=== PATIENT | male | born 1945 | race Two or more races ===

== ENCOUNTER 2020-12-26 22:00 | Emergency (ER) | payer OTHER ==
[~2020-12-26] VITALS: Ht 182.9 cm; Wt 79.4 kg
[2020-12-27] MEDS ORDERED: traMADol HCL 50 MG TAB PO ONE (06:15)
== END 2020-12-27 06:55 | disposition home or self-care (01) ==
LOC: EDBD 22:00 → ER 22:14
DX: T78.49XA Other allergy, initial encounter (principal); X58.XXXA Exposure to other specified factors, initial encounter
CPT/HCPCS: 93005

== ENCOUNTER 2021-04-19 08:13 | Emergency (ER) | payer OTHER ==
[~2021-04-19] VITALS: Ht 172.7 cm; Wt 79.4 kg
[2021-04-19] MEDS ORDERED: AMIODARONE HCL 150 MG in D5W 5% 100 ML IV ONE (09:00)
[2021-04-19] MEDS ORDERED: SODIUM CHLORIDE 0.9% 1,000 ML IVB ONE (09:00)
[2021-04-19] MEDS ORDERED: SODIUM CHLORIDE 0.9% 1,000 ML IV ONE (09:00)
[2021-04-19] MEDS ORDERED: ASPirin 81 mg TAB PO ONE (09:00)
[2021-04-19 10:46] LABS: Basophils # (auto) 0 10 ^3/uL (0-0.2); Basophils % (auto) 0.3 % (0.0-2.0); Eosinophils # (auto) 0.1 10 ^3/uL (0-0.8); Eosinophils % (auto) 0.9 % (0.0-7.0); Hematocrit 44.6 % (41.0-53.0); Hemoglobin 14.7 g/dL (13.5-17.5); Lymphocytes # (auto) 1.2 10 ^3/uL (0.4-5.4); Lymphocytes % (auto) 14.6 % (10.0-50.0); Mean Corpuscular Hemoglobin 29.8 pg (28.0-32.0); Mean Corpuscular Volume 90.3 fL (80.0-100.0); Monocytes # (auto) 0.8 10 ^3/uL (0-1.3); Monocytes % (auto) 10.3 % (0.0-12.0); Neutrophils % (auto) 73.9 % (37.0-80.0); Red Blood Cells 4.94 10^6/uL (4.5-5.90); Red Cell Distribution Width 14.4 % (11.8-14.3)
[2021-04-19 11:00] LABS: Albumin 3.5 g/dL (3.4-5.0); Anion Gap 3 (5-15); Blood Urea Nitrogen 13 mg/dL (7-18); Calcium 8.5 mg/dL (8.5-10.1); Carbon Dioxide 27 mmol/L (21-32); Chloride 109 mmol/L (98-107); Glucose 121 mg/dL (74-106); Magnesium 2.4 mg/dL (1.6-2.6); Potassium 3.8 mmol/L (3.5-5.1); Sodium 139 mmol/L (136-145)
[2021-04-19 11:06] LABS: INR 1.03 (0.9-1.15); Partial Thromboplastin Time 28.1 sec (23.6-33.0)
[2021-04-19 11:07] LABS: Alanine Aminotransferase 23 U/L (16-61); Alkaline Phosphatase 51 U/L (45-117); Aspartate Aminotransferase 17 U/L (15-37); BUN/Creatinine Ratio 12.6; Bilirubin, Total 0.5 mg/dL (0.2-1.0); GFR African American 90 mL/min; GFR Non-African American 75 mL/min; Total Protein 6.6 g/dL (6.4-8.2)
[2021-04-19] MEDS ORDERED: LORazepam 2MG/ML-1ML VIAL IM ONE (12:45)
[2021-04-19 12:54] LABS: Urine Bacteria NONE SEEN /hpf (None Seen); Urine Blood Negative /uL (Negative); Urine Hyaline Cast MOD /lpf (0 - 2); Urine Specific Gravity 1.009 (1.001-1.035); Urine WBC 1 /hpf (0 - 3)
[2021-04-19] MEDS ORDERED: MORPHINE SULFATE INJECTION 2 MG/ML SYRG IM ONE (13:00)
[2021-04-19] MEDS ORDERED: TAMSULOSIN HYDROCHLORIDE 0.4 MG CAP PO ONE (13:00)
[2021-04-19] MEDS ORDERED: IOHEXOL 350 MG/ML 100ML IJ ONE ×2 (13:05→15:35)
[2021-04-19] MEDS ORDERED: MORPHINE SULFATE INJECTION 2 MG/ML SYRG IV ONE (16:15)
[2021-04-19 16:43] VITALS: BP 134/71
== END 2021-04-19 18:13 | disposition left against medical advice (07) ==
LOC: EDBD 08:13 → ER 08:13
DX: I48.91 Unspecified atrial fibrillation (principal); R07.89 Other chest pain; I49.3 Ventricular premature depolarization; R79.1 Abnormal coagulation profile; I10 Essential (primary) hypertension; E78.5 Hyperlipidemia, unspecified
CPT/HCPCS: 36415; 71045; 71275; 80053; 81001; 83735; 83880; 84443; 84484; 85025; 85379; 85610; 85730; 93005; 96365; 96372; 96375; 99291; J0282; J2060; J2270; J7030; J7060; Q9967